=== PATIENT | female | born 1960 | race Caucasian/White ===

== ENCOUNTER → 2020-04-01 | Outpatient (CLI) | payer BC ==
--- NOTE | 2020-04-01 17:42 | Diagnostic Imaging Report ---
INDICATION: Pelvic pain and back pain. TIME OF EXAM: 2:42 p.m. EXAMINATION: Frontal view of the pelvis and multiple views of bilateral hips were obtained. FINDINGS: Femoral acetabular alignment is normal, bilaterally. There are significant osteoarthritic changes of bilateral hips. Significant superior joint space narrowing is noted, bilaterally. Femoral heads and necks are intact and no fracture is seen. Rami appear to be intact. SI joints and symphysis are not widened. IMPRESSION: Bilateral hip joint degenerative changes. No acute bony abnormality is detected. Dictated by: Dictated on workstation # [id number]
--- NOTE | 2020-04-01 17:42 | Diagnostic Imaging Report ---
INDICATION: Low back pain. TIME OF EXAM: 02:38 p.m. EXAMINATION: Frontal and lateral views of lumbar spine were obtained. FINDINGS: Curvature of lumbar spine is normal. There is minimal anterolisthesis of L4 on L5. Vertebral body heights are maintained. No acute compression fracture is seen. There is generalized degenerative disc disease with variable disc space narrowing and marginal spurring. There is multilevel facet arthropathy noted. IMPRESSION: Lumbar spondylosis and facet arthropathy with minimal L4-L5 spondylolisthesis. No acute bony abnormality is detected. Dictated by: Dictated on workstation # [id number]
--- NOTE | 2020-04-01 17:43 | Diagnostic Imaging Report ---
INDICATION: Back pain. TIME OF EXAM: 02:37 p.m. FINDINGS: Frontal and lateral views of the thoracic spine were obtained. There is normal thoracic kyphotic curvature. The vertebral body heights appear to be well maintained. No acute compression fracture is detected. There is generalized degenerative disc disease with variable disc space narrowing and marginal osteophyte formation. Paraspinous line is intact. There are postop changes in the lower cervical spine. IMPRESSION: Thoracic spondylosis. No acute bony abnormality is detected. Dictated by: Dictated on workstation # [id number]
== END ==
LOC: RAD 14:01
PROVIDERS: ATTEND Family Medicine
DX: M47.816 Spondylosis without myelopathy or radiculopathy, lumbar region (principal); M43.16 Spondylolisthesis, lumbar region; M16.0 Bilateral primary osteoarthritis of hip; M47.814 Spondylosis without myelopathy or radiculopathy, thoracic region; M48.00 Spinal stenosis, site unspecified
CPT/HCPCS: 72072; 72100; 73523

== ENCOUNTER → 2022-07-30 | Outpatient (CLI) | payer BC ==
--- NOTE | 2022-07-30 17:02 | Diagnostic Imaging Report ---
EXAMINATION: Bilateral breast ultrasound. INDICATION: Right breast lump. FINDINGS: The diagnostic mammogram performed prior to this study noted multiple rounded asymmetries of varying sizes in both breasts. In the area of the patient's palpable abnormality in the 1 o'clock position of the right breast approximately 3 to 4 cm from the nipple, there is a 5.1 x 3.6 x 4.3 cm solid mass with a small amount of internal vascularity. This finding is worrisome for malignancy and I would recommend that an ultrasound-guided biopsy be performed. There are also numerous cysts in both breasts. These cysts have a generally benign appearance. The largest cyst on the right is in the 8 o'clock position roughly 3 to 4 cm from the nipple and measures 3.2 x 1.7 x 2.6 cm. On the left, the largest cyst is in the 6 o'clock position and measures 2.7 x 2.0 x 3.6 cm. There is no other solid mass to suggest malignancy. There is a small amount of shadowing in the midportion of the left breast. Most likely, this corresponds to the suspected scar formation seen on the mammogram. IMPRESSION: 1. There is a solid 5 cm mass in the area of the patient's palpable abnormality in the right breast. This is suspicious for malignancy. An ultrasound-guided biopsy would be recommended for further study. 2. There are multiple benign-appearing cysts of varying sizes in both breasts. 3. These results were called to Dr. Ernst Frausto. ACR BI-RADS Category 4: Suspicious abnormality. Result letter will be mailed to the patient. Note: At least 10% of breast cancer is not imaged by mammography. Dictated by: Dictated on workstation # [id number]
--- NOTE | 2022-07-30 19:48 | Diagnostic Imaging Report ---
3-D bilateral diagnostic mammogram with CAD. INDICATION: Right breast lump COMPARISON: There are no previous exams available for comparison. By history, the patient has a palpable abnormality in the 1 o'clock position of the right breast. In this area, there is a 4 cm rounded mass. The tomographic images suggest that this asymmetry has a fairly smooth border although it is not visualized in its entirety. There are multiple other rounded asymmetries in both breasts and these findings could be secondary to cyst formation. The possibility of a solid mass however cannot be entirely excluded. I would recommend that ultrasound of the right breast be performed for further study. There is an area of architectural distortion in the midportion of the left breast. By history, the patient has had a prior biopsy in this area and I suspect that the architectural distortion is related to scar formation. IMPRESSION: Ultrasound would be recommended for further evaluation of the 4 cm rounded mass in the 1 o'clock position of the right breast. ACR BI-RADS Category 0: Incomplete. (Needs additional imaging evaluation). Result letter will be mailed to the patient. Note: At least 10% of breast cancer is not imaged by mammography. Dictated by: Dictated on workstation # [id number]
== END ==
LOC: RAD 12:45
PROVIDERS: ATTEND Surgery
DX: N63.13 Unspecified lump in the right breast, lower outer quadrant (principal); N60.11 Diffuse cystic mastopathy of right breast; N60.12 Diffuse cystic mastopathy of left breast
CPT/HCPCS: 76641; 77066; G0279; 77062

== ENCOUNTER → 2022-08-09 | Outpatient (CLI) | payer BC ==
[~2022-08-09] VITALS: Ht 165.1 cm; Wt 90.9 kg
[~2022-08-09] MED LIST: LIDOCAINE 1% INJ 30 ML (XYLOCAINE) VIAL INJ ONE; LIDOCAINE 1% INJ 30 ML (XYLOCAINE) VIAL ONE
--- NOTE | 2022-08-09 13:01 | Diagnostic Imaging Report ---
INDICATION: Right breast mass. PROCEDURE: The patient presents for ultrasound-guided core biopsy. The patient was brought to the sonographic suite and placed on the table in the supine position. Ultrasound imaging of the right breast was performed to evaluate appropriate entry site. The right breast was then prepped and draped in the usual sterile fashion. A small amount of 1% lidocaine was utilized for local anesthesia. A total of 4 core biopsies were obtained of the large mass at the 1:00 location of the right breast, 3-4 cm from the nipple utilizing the 14-gauge Achieve needle. A marker clip was then deployed. Hemostasis was obtained using manual compression. The patient tolerated the procedure well and was sent for a post procedure mammogram in satisfactory condition. IMPRESSION: Successful ultrasound-guided core biopsy of the right breast mass at the 1:00 location. Pathology results are currently pending. Dictated by: Dictated on workstation # [id number]
--- NOTE | 2022-08-09 18:38 | Diagnostic Imaging Report ---
INDICATION: Right breast mass. Patient is status post ultrasound-guided biopsy. EXAMINATION: Unilateral right 2D CC and ML mammography was performed after patient underwent ultrasound-guided core biopsy. FINDINGS: There is a marker clip noted within the dominant solid mass in the upper slightly inner right breast, status post ultrasound-guided biopsy. IMPRESSION: Marker clip placement, as described. Dictated by: Dictated on workstation # [id number]
== END ==
LOC: RAD 10:42
PROVIDERS: ATTEND Surgery
DX: N63.12 Unspecified lump in the right breast, upper inner quadrant (principal)
CPT/HCPCS: 19083; 77065; G0279

== ENCOUNTER 2022-08-22 06:04 | Outpatient (CLI) | payer BC ==
[~2022-08-22] VITALS: Ht 165.1 cm; Wt 90.9 kg
[2022-08-22] MEDS ORDERED: GABA-486 PO (15:44)
[2022-08-22] MEDS ORDERED: CARV12.53 PO (15:44)
[2022-08-22] MEDS ORDERED: MELO15TA39 PO (15:44)
[2022-08-22] MEDS ORDERED: SIMV20TA26 PO (15:44)
[2022-08-22] MEDS ORDERED: FLUO20CA42 PO (15:44)
[2022-08-22] MEDS ORDERED: DICL100G13 TP (15:44)
== END 2022-08-22 15:48 | disposition home or self-care (01) ==
LOC: PREOP 06:04
PROVIDERS: ATTEND Surgery
DX: Z01.818 Encounter for other preprocedural examination (principal)

== ENCOUNTER 2022-08-29 05:58 | Day surgery (SDC) | payer BC ==
[~2022-08-29] VITALS: Ht 165 cm; Wt 90.9 kg
[2022-08-29] VITALS (12 sets, daily range): BP systolic 125–156; BP diastolic 72–84
[~2022-08-29 05:58] MED LIST changes: +CARV12.53 PO; +DICL100G13 TP; +FLUO20CA42 PO; +GABA-486 PO; -LIDOCAINE 1% INJ 30 ML (XYLOCAINE) VIAL INJ ONE; -LIDOCAINE 1% INJ 30 ML (XYLOCAINE) VIAL ONE; +MELO15TA39 PO; +SIMV20TA26 PO
[2022-08-29] MEDS ORDERED: LACTATED RINGERS 1,000 ML IV PRN (06:15)
[2022-08-29] MEDS ORDERED: ceFAZolin INJECTION 2,000 MG in NS (IVPB) 50 ML IV ONE (06:15)
[2022-08-29] MEDS ORDERED: BUP/EPI 0.25% 1:200,000 (MARCAINE) 30 ML VIAL ONE (07:09)
[2022-08-29] MEDS ORDERED: SEVOFLURANE (ULTANE) 15 ML INHAL SOLN ONE ×2 (07:13→08:48)
[2022-08-29] MEDS ORDERED: LIDOCAINE PF 2% 5 ML (XYLOCAINE) VIAL ONE (07:13)
[2022-08-29] MEDS ORDERED: ONDANSETRON 4 MG/2 ML (SDV) Z0FRAN ONE (07:13)
[2022-08-29] MEDS ORDERED: fentaNYL INJ 100 MCG/2 ML AMP ONE ×2 (07:13→09:38)
[2022-08-29] MEDS ORDERED: MIDAZOLAM 2 MG/2 ML (VERSED) VIAL ONE (07:13)
[2022-08-29] MEDS ORDERED: proPOfol 200 MG/20 ML (DIPRIVAN) VIAL IV ONE (07:13)
[2022-08-29] MEDS ORDERED: METHYLENE BLUE 0.5% (PROVAYBLUE) 50 mg/10 ml vial IV ONE ×2 (08:19→08:50)
--- NOTE | 2022-08-29 08:25 | Progress Note-Pre Operative ---
Pre-Operative Progress Note Date of Available H&P: Aug 15, 2022 Date H&P Reviewed: Aug 29, 2022 Time H&P Reviewed: 08:23 History & Physical: H&P Reviewed, Patient Examed, No changes noted Pre-Operative Diagnosis: right breast cancer JOSEPH ENAMORADO DO Aug 29, 2022 08:25
[2022-08-29] MEDS ORDERED: BUP/EPI 0.25% 1:200,000 (MARCAINE) 30 ML VIAL IJ ONE (09:21)
[2022-08-29] MEDS ORDERED: ACHD5005 PO (09:30)
[2022-08-29] MEDS ORDERED: DOCU-143 PO (09:30)
--- NOTE | 2022-08-29 09:32 | Discharge Inst-Simple/Standard ---
Discharge Inst-Standard Discharge Medications New, Converted or Re-Newed RX: Transmitted to Pharmacy Patient Instructions/Follow Up Plan of Care/Instructions/FU: 2 weeks Elmer Activity as Tolerated: No Discharge Diet: Regular Diet Other Inst to Patient Follow up Appt: Make appointment for 2 week. Instructions: No lifting greater than 10 pounds. No strenuous activity. May shower in 24 hours, no tub bath or soaking. Use incentive spirometer at home as directed. No Smoking Skin/Wound Care: You have special glue over your incision that will fall off on it's own. Symptoms to Report: Appetite Changes, Extremity Discoloration, Numbness/Tingling, Swelling Increased, Bleeding Excessive, Eyesight Changes, Pain Increased, Urine Color Change, Constipation(Persistent), Fever over 101 degree F, Pain/Pressure in chest, Urinating Difficulty, Cough Up/Vomit Blood, Heart Beat Irreg/Pounding, Pain/Pressure in jaw, Vaginal Bleeding Increase, Cramps in feet or legs, Lightheadedness, Pain/Pressure in shoulder, Diarrhea(Persistent), Memory Changes Suddenly, Questions/Concerns, Weight gain consecutive days, Dizziness/Fainting, Nausea/Vomiting, Shortness of Breath, Weight gain over 2 pounds If questions or concerns contact your physician Or seek help at emergency department. JOSEPH ENAMORADO DO Aug 29, 2022 09:32
--- NOTE | 2022-08-29 09:32 | Anesthesia-General Post-Op ---
General Patient Condition Mental Status/LOC: Same as Preop Cardiovascular: Satisfactory Nausea/Vomiting: Absent Respiratory: Satisfactory Pain: Controlled Complications: Absent Post Op Complications Complications None Follow Up Care/Instructions Patient Instructions None needed. Anesthesia/Patient Condition Patient Condition Patient is doing well, no complaints, stable vital signs, no apparent adverse anesthesia problems. No complications reported per nursing. IRIS DE LA O CRNA Aug 29, 2022 09:32
[2022-08-29] MEDS ORDERED: MEPERIDINE (DEMEROL) INJ 50 MG/ML IVP ONE (09:45)
[2022-08-29] MEDS ORDERED: fentaNYL INJ 100 MCG/2 ML AMP IVP ONE (09:45)
[2022-08-29] MEDS ORDERED: ONDANSETRON 4 MG/2 ML (SDV) Z0FRAN IVP PRN (09:45)
--- NOTE | 2022-08-29 09:55 | Diagnostic Imaging Report ---
INDICATION: Right breast cancer. Total of 1.1 mCi technetium 99m Lymphoseek was injected in 4 separate aliquots in a periareolar distribution of the right breast. Imaging was then performed. There is migration of activity to the right axilla. The sentinel node was marked on the patient's skin. IMPRESSION: Right breast lymphoscintigraphy, as described. Dictated by: Dictated on workstation # [id number]
--- NOTE | 2022-08-30 03:33 | OPERATIVE REPORT ---
DATE OF SERVICE: 08/29/2022 PREOPERATIVE DIAGNOSIS: Right breast cancer. POSTOPERATIVE DIAGNOSIS: Right breast cancer. PROCEDURE: Right breast sentinel node biopsy. SURGEON: Joseph Payne DO TYPE OF ANESTHESIA: General. ESTIMATED BLOOD LOSS: Minimal. COMPLICATIONS: None. INDICATIONS: The patient is a 62-year-old female with a right breast mass, which proven to be right breast cancer. The patient needing sentinel node biopsy prior to any treatment for pantera status. The patient understands risks and benefits of procedure and wishes to proceed. Consent was signed in chart. DESCRIPTION OF PROCEDURE: The patient was taken to the operating suite. She was prepped and draped in sterile fashion. Timeout was performed. A 4 mL of methylene blue was injected, 1 mL in each of 4 locations and near the tumor that is palpable. The breast was massaged for 10 minutes. Then, local anesthetic was infiltrated in the right axilla. A [employer] counter was used to isolate the largest collection of the tracer. Hemostat was used to dissect down through subcutaneous tissues, which then encountered a node that had a methylene blue color to it and in-vivo count of 31,673. This was able to be grasped with Marilin, gently elevated and cautery used to dissect out achieving hemostasis. Ex-vivo count was 33,900. The axilla was then irrigated with copious amounts of water and hemostasis had been achieved. No other palpable nodes present and no nodes found with the counter; therefore, the subcutaneous tissues were then reapproximated using a 3-0 Vicryl and the skin was then closed with Skin Affix. The patient tolerated the procedure well without any complications. She was taken to recovery room in stable condition. Job ID: [id number] DocumentID: [id number] Dictated Date: 08/29/2022 23:38:56 Index Editor Date: 08/30/2022 03:30:00 Dictated By: JOSEPH PAYNE DO
== END 2022-08-29 11:30 | disposition home or self-care (01) ==
LOC: CARD 05:58
PROVIDERS: ATTEND Surgery
DX: C50.911 Malignant neoplasm of unspecified site of right female breast (principal)
CPT/HCPCS: 38500; 38900; 78195; 87081; A9520

== ENCOUNTER 2022-11-06 15:07 | Outpatient (RCR) | payer BC ==
[~2022-11-06 15:07] MED LIST changes: +ACHD5005 PO; +DOCU-143 PO
== END 2022-11-20 | disposition home or self-care (01) ==
LOC: ONC 15:07
PROVIDERS: ATTEND Internal Medicine Hematology & Oncology
DX: Z53.9 Procedure and treatment not carried out, unspecified reason (principal)

== ENCOUNTER 2022-12-04 12:09 | Outpatient (CLI) | payer BC ==
[~2022-12-04] VITALS: Ht 165.1 cm; Wt 90.9 kg
[2022-12-04] MEDS ORDERED: CARV25TA PO (14:18)
[2022-12-04] MEDS ORDERED: CARV12.53 PO (14:18)
== END 2022-12-11 08:55 | disposition home or self-care (01) ==
LOC: PREOP 12:09
PROVIDERS: ATTEND Surgery
DX: Z01.818 Encounter for other preprocedural examination (principal)

== ENCOUNTER 2022-12-12 07:08 | Inpatient (IN) | payer BC ==
[~2022-12-12] VITALS: Ht 165 cm; Wt 88.0 kg
[2022-12-12] VITALS (12 sets, daily range): BP systolic 92–147; BP diastolic 52–81
[~2022-12-12 07:08] MED LIST changes: +CARV25TA PO
[2022-12-12] MEDS ORDERED: ceFAZolin INJECTION 2,000 MG in NS (IVPB) 50 ML IV ONE (07:15)
[2022-12-12] MEDS ORDERED: LACTATED RINGERS 1,000 ML IV PRN (07:15)
[2022-12-12] MEDS ORDERED: BUP/EPI 0.5% 1:200,000 (SENSORCAINE) 30 ML VIAL ONE (07:23)
--- NOTE | 2022-12-12 07:27 | Progress Note-Pre Operative ---
Pre-Operative Progress Note Date H&P Reviewed: Dec 12, 2022 Time H&P Reviewed: 07:26 History & Physical: H&P Reviewed, Patient Examed, No changes noted Pre-Operative Diagnosis: right breast cancer JOSEPH ENAMORADO DO Dec 12, 2022 07:27
[2022-12-12] MEDS ORDERED: ONDANSETRON 4 MG/2 ML (SDV) Z0FRAN ONE ×2 (07:35→10:33)
[2022-12-12] MEDS ORDERED: LIDOCAINE PF 2% 5 ML (XYLOCAINE) VIAL ONE (07:35)
[2022-12-12] MEDS ORDERED: proPOfol 200 MG/20 ML (DIPRIVAN) VIAL IV ONE (07:35)
[2022-12-12] MEDS ORDERED: fentaNYL INJ 100 MCG/2 ML AMP ONE ×2 (07:35→10:32)
[2022-12-12] MEDS ORDERED: SEVOFLURANE (ULTANE) 15 ML INHAL SOLN ONE ×2 (07:35→09:12)
[2022-12-12] MEDS ORDERED: MIDAZOLAM 2 MG/2 ML (VERSED) VIAL ONE (07:36)
[2022-12-12] MEDS ORDERED: ROPIVACAINE 5MG/ML 30ML VIAL ONE (08:12)
[2022-12-12] MEDS ORDERED: fentaNYL INJ 100 MCG/2 ML AMP IVP PRN (09:45)
--- NOTE | 2022-12-12 09:54 | Progress Note-Post Operative ---
Post-Operative Progess Note Surgeon (s)/Vacuum Cleaner Repairer (s) Surgeon JOSEPH ENAMORADO DO Vacuum Cleaner Repairer: na Pre-Operative Diagnosis right breast cancer Post-Operative Diagnosis same Procedure & Operative Findings Date of Procedure 12/12/22 Procedure Performed/Findings right simple mastectomy Anesthesia Type general Estimated Blood Loss Estimated blood loss (mL): minimal Specimens/Packing Specimens Removed right breast JOSEPH ENAMORADO DO Dec 12, 2022 09:54
[2022-12-12] MEDS ORDERED: ONDANSETRON 4 MG/2 ML (SDV) Z0FRAN IVP PRN ×2 (10:00→10:15)
--- NOTE | 2022-12-12 10:05 | Anesthesia-General Post-Op ---
General Patient Condition Mental Status/LOC: Same as Preop Cardiovascular: Satisfactory Nausea/Vomiting: Absent Respiratory: Satisfactory Pain: Controlled Complications: Absent Post Op Complications Complications None Follow Up Care/Instructions Patient Instructions None needed. Anesthesia/Patient Condition Patient Condition Patient is doing well, no complaints, stable vital signs, no apparent adverse anesthesia problems. No complications reported per nursing. KARLOS WHYTE CRNA Dec 12, 2022 10:05
[2022-12-12] MEDS ORDERED: fentaNYL INJ 100 MCG/2 ML AMP IVP ONE (10:15)
[2022-12-12] MEDS ORDERED: PROMETHAZINE INJ 25 MG/ML (PHENERGAN) AMP IVP ONE (10:15)
[2022-12-12] MEDS ORDERED: MEPERIDINE (DEMEROL) INJ 50 MG/ML IVP ONE (10:15)
[2022-12-12] MEDS: HYDROcodone/APAP 5 MG/325 MG (LORTAB) TAB PO PRN ×3 (11:33→21:12)
--- NOTE | 2022-12-12 14:04 | Physical Therapy Evaluation ---
PT Evaluation-General Medical Diagnosis Admission Date Dec 12, 2022 at 07:08 Medical Diagnosis: Right Mastectomy Onset Date: Dec 12, 2022 Therapy Diagnosis Therapy Diagnosis: Gait deficit, strength deficit Precautions Precautions/Isolations: Fall Prevention, Standard Precautions Weight Bear Status Right Lower Extremity: Right Full Weight Bearing Left Lower Extremity: Left Full Weight Bearing Referral Physician: Dr. Payne Reason for Referral: Evaluation/Treatment Medical History Reviewed History: Yes Social History Home: Single Level Current Living Status: Spouse Entry Into Home: Stairs With Railing PT Steps Into Home: 3 Prior Prior Level of Function SCALE: Activities may be completed with or without assistive devices. 5-Exoucbwxww-hptnqgp completes the activity by him/herself with no assistance from a helper. 5-Set-up or Clean-up Assistance-helper sets up or cleans up; patient completes activity. [place] assists only prior to or following the activity. 4-Supervision or Touching Assistance-helper provides verbal cues and/or touching/steadying and/or contact guard assistance as patient completes activity. Assistance may be provided throughout the activity or intermittently. 3-Partial/Moderate Assistance-helper does LESS THAN HALF the effort. [place] lifts, holds or supports trunk or limbs, but provides less than half the effort. 2-Substantial/Maximal Assistance-helper does MORE THAN HALF the effort. [place] lifts or holds trunk or limbs and provides more than half the effort. 6-Refqyblqj-kaugnr does ALL the effort. Patient does none of the effort to complete the activity. Or, the assistance of 2 or more helpers is required for the patient to complete the activity. If activity was not attempted, code reason: 7-Patient Refused. 9-Not Applicable-not attempted and the patient did not perform the activity before the current illness, exacerbation or injury. 10-Not Attempted due to Environmental Limitations-(lack of equipment, weather restraints, etc.). 88-Not Attempted due to Medical Conditions or Safety Concerns. Bed Mobility: 6 Transfers (B,C,W/C): 6 Gait: 6 Stairs: 6 Indoor Mobility (Ambulation): Independent Stairs: Independent Prior Devices Use: Walker Patient has L4-5 fusion in September 2022. Reports since then she has used a FWW at times and uses her LSO, but states "I don't have to anymore, just when I feel like I might need it." Reports severe OA in bilateral hip with surgeries imminent. Reports coupled with the back surgery, her bilateral hip pain causes her to walk with a moderate forward lean at times. PT Evaluation-Current Subjective Patient lying supine in bed upon PT arrival, agreeable to treatment. Patient rates pain at 6/10 in right chest. Objective Patient Orientation: Person, Place, Time, Situation Sensory Vision: Functional Hearing: Functional Sensation Right Lower Extremit: Intact Sensation Left Lower Extremity: Intact Transfers Roll Left to Right (QC): 3 Sit to Lying (QC): 3 Lying to Sitting/Side of Bed(Q: 3 Sit to Stand (QC): 4 Chair/Qnj-bj-Uofok Xfer(QC): 4 Gait Does the Patient Walk?: Yes Mode of Locomotion: Walk Anticipated Mode of Locomotion: Walk Walk 10 feet (QC): 4 Walk 50 ft with 2 Turns(QC): 4 Walk 150 ft (QC): 4 Distance: 150 feet Gait Assistive Device: None Balance Sitting Static: Good Sitting Dynamic: Good Standing Static: Fair Standing Dynamic: Fair Assessment/Needs Patient tolerate treatment fair. She was educated on limited use of the right UE especially for any bed mobility or transfers. Advised against using FWW with RUE at this time. Patient performs all bed mobility with min a and all transfers with CGA. Patient ambulates 150 feet with CGA and verbal cues for posture, safety and conservation of energy. Patient in chair post treatment with all needs met, nursing notified, call light in hand and daughter in the room. Rehab Potential: Good PT Bit Shaver Goals Bit Shaver Goals PT Assisted Goals Time Frame: Dec 21, 2022 Roll Left & Right (QC): 6 Sit to Lying (QC): 6 Lying-Sitting on Side/Bed(QC): 6 Sit to Stand (QC): 6 Chair/Vlw-uo-Bqufb Xfer(QC): 6 Toilet Transfer (QC): 6 Does the Patient Walk: Yes Walk 10 feet (QC): 6 Walk 50ft with 2 Turns (QC): 6 Walk 150 ft (QC): 6 1 Step (curb) (QC): 4 4 Steps (QC): 4 PT Plan Problem List Problem List: Activity Tolerance, Functional Strength, Safety, Balance, Gait, Transfer, Bed Mobility, ROM Treatment/Plan Treatment Plan: Continue Plan of Care Treatment Plan: Bed Mobility, Education, Functional Activity Ora, Functional Strength, Group Therapy, Gait, Safety, Therapeutic Exercise, Transfers Treatment Duration: Dec 21, 2022 Frequency: 6 times per week Estimated Hrs Per Day: .25 hour per day Patient and/or Family Agrees t: Yes Safety Risks/Education Patient Education: Gait Training, Transfer Techniques Teaching Recipient: Patient Teaching Methods: Demonstration, Discussion Response to Teaching: Verbalize Understanding, Return Demonstration Time Time In: 1323 Time Out: 1348 DATE: Dec 12, 2022 Total Billed Treatment Time: 25 Total Billed Treatment Visit, Dillan CRESPO JOHN A PT Dec 12, 2022 14:04
[2022-12-12] MEDS ORDERED: AtorvaSTATin TABLET 10 MG TABLET PO SCH (21:00)
[2022-12-12] MEDS ORDERED: GABAPENTIN 100 MG (NEURONTIN) CAP ONE (21:49)
[2022-12-12] MEDS: GABAPENTIN 100 MG (NEURONTIN) CAP PO SCH (21:51)
--- NOTE | 2022-12-13 03:50 | OPERATIVE REPORT ---
DATE OF SERVICE: 12/12/2022 PREOPERATIVE DIAGNOSIS: Right breast cancer. POSTOPERATIVE DIAGNOSIS: Right breast cancer. PROCEDURE PERFORMED: Right simple mastectomy. SURGEON: Joseph Payne DO. ANESTHESIA: General. ESTIMATED BLOOD LOSS: 125 mL. COMPLICATIONS: None. INDICATIONS: The patient is a 62-year-old female who was found to have right breast cancer. She previously had sentinel node biopsy, which was negative. The patient delayed her surgical intervention for spine surgery. She followed back up with me to discuss surgical options and also had referral to oncology, which she saw. The patient is going to proceed with right simple mastectomy. At this time, she does not want any further options or treatment, just want to proceed with mastectomy. All risks and benefits were discussed with her and her family and she understands and agreed to only right simple mastectomy. DESCRIPTION OF PROCEDURE: The patient was taken to the operating suite. She was prepped and draped in sterile fashion. Timeout was performed. Elliptical incision was made in the right breast from the medial aspect laterally to the mid axillary line. Skin flaps were created both superiorly and inferiorly to anatomical landmarks and also medially to the sternal edge. Once skin flaps were made, the pectoralis major was then scored and elevated and the pectoral fascia was removed medially to laterally until lateral borders of mastectomy were encountered and the right breast was then excised. The breast was tagged with short suture superiorly and long suture laterally. The wound was then irrigated with copious amounts of sterile water. Hemostasis was achieved. [ ] Tommie drains were placed within the wound, brought out through stab incisions in the right lateral lower breast flap. The subcutaneous tissues were then reapproximated using 3-0 Vicryl. The skin was then closed using 4-0 Monocryl in a running subcuticular fashion. The area was washed and dried and skin Affix was placed over the incisions. The patient tolerated the procedure well without complications. She was taken to recovery room in stable condition. Job ID: [id number] DocumentID: [id number] Dictated Date: 12/12/2022 22:33:39 [employer]ocate Date: 12/13/2022 03:48:00 Dictated By: JOSEPH PAYNE DO
[2022-12-13 04:58] VITALS: BP 133/67
[2022-12-13] MEDS: HYDROcodone/APAP 5 MG/325 MG (LORTAB) TAB PO PRN ×2 (04:58→13:16)
--- NOTE | 2022-12-13 07:05 | Progress Note - Surgery ---
YOAN CESAR 12/13/22 0705: Subjective Date Seen by a Provider: Dec 13, 2022 Time Seen by a Provider: 06:58 Subjective/Events-last exam Veena Vigil was seen at bedside this morning resting comfortably. POD 1 R mastectomy. Reports 4/10 pain at surgical site well controlled with lortab. Denies any other pain. Drains in place and draining serosanguinous fluid. Approximately 200cc out since surgery via 2 KRISTOPHER drains. No swelling or bruising present at surgical site. Normal strength and ROM in right UE. No fever or chills overnight. Desires to advance diet to regular for breakfast. Reports she is ambulating without issue. Review of Systems General: No Chills, No Night Sweats HEENT: No Head Aches, No Visual Changes Pulmonary: No Dyspnea, No Cough Cardiovascular: Chest Pain; No: Palpitations, Edema Gastrointestinal: No: Nausea, Vomiting, Abdominal Pain Genitourinary: No Dysuria, No Hematuria Musculoskeletal: No: arm pain, hand pain Neurological: No: Change in speech, Confusion Objective Exam Vital Signs Date Time Temp Pulse Resp B/P (MAP) Pulse Ox O2 Delivery O2 Flow Rate FiO2 12/13/22 04:58 36.4 73 18 133/67 (89) 95 Room Air 12/12/22 23:53 36.1 71 20 123/62 (82) 95 NIV CPAP 12/12/22 20:59 Room Air 12/12/22 19:35 36.9 86 18 125/59 (81) 94 Room Air 12/12/22 16:06 37.2 76 18 130/64 (86) 94 Room Air 12/12/22 16:04 Room Air 12/12/22 11:30 96 Room Air 2.00 12/12/22 11:00 35.6 59 18 147/81 (103) 96 Room Air 12/12/22 10:55 Room Air 12/12/22 10:50 36.7 14 132/70 (90) 97 Room Air 12/12/22 10:40 OxyMask 2.00 12/12/22 10:40 12 134/66 (88) 95 OxyMask 2.00 12/12/22 10:30 12 123/62 (82) 100 OxyMask 4.00 12/12/22 10:25 OxyMask 6.00 12/12/22 10:20 14 105/52 (69) 100 OxyMask 6.00 12/12/22 10:10 OxyMask 6.00 12/12/22 10:10 14 92/60 (71) 99 OxyMask 6.00 12/12/22 10:00 16 93/55 (68) 98 OxyMask 10 12/12/22 09:56 36.1 16 94/54 (67) 94 OxyMask 10 12/12/22 09:56 OxyMask 10 12/12/22 07:25 96 Room Air 12/12/22 07:25 36.2 78 18 135/81 (99) 96 Room Air I & O 12/13/22 07:00 Intake Total 550 ml Output Total 300 ml Balance 250 ml Capillary Refill : General Appearance: No Apparent Distress, WD/WN HEENT: PERRL/EOMI, Moist Mucous Membranes Neck: Non Tender, Supple Respiratory: Lungs Clear, No Accessory Muscle Use Cardiovascular: Regular Rate, Rhythm, Normal Peripheral Pulses Gastrointestinal: non tender, soft Extremity: Normal Capillary Refill, No Pedal Edema, Other (RUE is nontender with no edema) Neurologic/Psychiatric: Alert, Oriented x3, Normal Mood/Affect Skin: Normal Color, Warm/Dry, Other (no obvious blood or purulence noted on outside of bandage. Did not take down. Will examine with Dr Payne later today.) Lymphatic: No Adenopathy Assessment/Plan Assessment/Plan Assessment/Plan POD 1 R mastectomy R sided post surgical chest pain R breast cancer pain controlled with lortab, has not required other pain medication No signs of infection or bleeding to R chest Encouraged IS use and ambulation Advance diet to regular Likely will discharge today with close outpatient follow up JOSEPH PAYNE DO 12/13/22 1621: Subjective Subjective/Events-last exam Pain controlled. Drains serosang. No complaints. Denies n/v fever sweats chills shortness of breath or chest pain. Objective Exam General Appearance: No Apparent Distress, WD/WN HEENT: PERRL/EOMI, Normal ENT Inspection Neck: Non Tender, Supple Respiratory: Chest Non Tender, No Accessory Muscle Use, No Respiratory Distress Cardiovascular: Regular Rate, Rhythm, No JVD Gastrointestinal: non tender, soft Extremity: Non Tender, Other (RUE is nontender with no edema) Neurologic/Psychiatric: Alert, Oriented x3, Normal Mood/Affect Skin: Normal Color, Warm/Dry Lymphatic: No Adenopathy Assessment/Plan Assessment/Plan Assessment/Plan POD 1 R mastectomy R sided post surgical chest pain R breast cancer pain controlled with lortab, has not required other pain medication No signs of infection or bleeding to R chest Encouraged IS use and ambulation Regular diet Likely will discharge today with close outpatient follow up Final Diagnosis s/p right mastectomy R sided post surgical chest pain R breast cancer Supervisory-Addendum Brief Verification & Attestation Participated in pt care: history, MDM, physical Personally performed: exam, history, MDM, supervision of care Care discussed with: Medical Student Procedures: n/a Results interpretation: Verified all documentation Verification and Attestation of Medical Student E/M Service A medical student performed and documented this service in my presence. I reviewed and verified all information documented by the medical student and made modifications to such information, when appropriate. I personally performed the physical exam and medical decision making. Joseph Payne Dec 13, 2022,16:21 YOAN CESAR Dec 13, 2022 07:05 JOSEPH PAYNE DO Dec 13, 2022 16:21
[2022-12-13 07:28] VITALS: BP 121/68
[2022-12-13] MEDS: GABAPENTIN 100 MG (NEURONTIN) CAP PO SCH (08:55)
--- NOTE | 2022-12-13 09:47 | Physical Therapy Progress Note ---
Therapy Progress Note Patient observed by this PT ambulating in hallway independently without AD with family. PT discussed with patient and family on importance of continuing to ambulate PRN to improve strength and to prevent possible negative side effects. Both voice understanding. PT to dismiss patient from services at this time. SERA YBARRA PT Dec 13, 2022 09:47
[2022-12-13 11:28] VITALS: BP 130/75
[2022-12-13] MEDS ORDERED: ACHD5005 PO (16:10)
[2022-12-13] MEDS ORDERED: DOCU-143 PO (16:10)
--- NOTE | 2022-12-13 16:12 | Discharge Inst-Simple/Standard ---
Discharge Inst-Standard Discharge Medications New, Converted or Re-Newed RX: Transmitted to Pharmacy Patient Instructions/Follow Up Plan of Care/Instructions/FU: 2 weeks Elmer When drain is less than 30 mL per 24 hours, notify office to have it removed. Only one drain to be removed per day if less than 30mL. Activity as Tolerated: No Discharge Diet: Regular Diet Other Inst to Patient Follow up Appt: Make appointment for 2 week. When drain is less than 30 mL per 24 hours, notify office to have it removed. Only one drain to be removed per day if less than 30mL. Instructions: No lifting greater than 10 pounds. No strenuous activity. May shower in 24 hours, no tub bath or soaking. Use incentive spirometer at home as directed. No Smoking Skin/Wound Care: You have special glue over your incision that will fall off on it's own. Change dressing daily and as needed. Symptoms to Report: Appetite Changes, Extremity Discoloration, Numbness/Tingling, Swelling Increased, Bleeding Excessive, Eyesight Changes, Pain Increased, Urine Color Change, Constipation(Persistent), Fever over 101 degree F, Pain/Pressure in chest, Urinating Difficulty, Cough Up/Vomit Blood, Heart Beat Irreg/Pounding, Pain/Pressure in jaw, Vaginal Bleeding Increase, Cramps in feet or legs, Lightheadedness, Pain/Pressure in shoulder, Diarrhea(Persistent), Memory Changes Suddenly, Questions/Concerns, Weight gain consecutive days, Dizziness/Fainting, Nausea/Vomiting, Shortness of Breath, Weight gain over 2 pounds If questions or concerns contact your physician Or seek help at emergency department. JOSEPH ENAMORADO DO Dec 13, 2022 16:12
[2022-12-13 16:28] VITALS: BP 129/66
[2022-12-13 17:55] VITALS: BP 129/66
== END 2022-12-13 18:02 | disposition home or self-care (01) | DRG 583 ==
LOC: 4TH 07:08 → SURG 07:09 → 4TH 11:09
PROVIDERS: ADMIT Surgery; ATTEND Surgery
PROC: 0KX Muscles, Transfer (ICD-10-PCS; 2022-12-12)
PROC: 5A09357 Assistance with Respiratory Ventilation, Less than 24 Consecutive Hours, Continuous Positive Airway Pressure (ICD-10-PCS; 2022-12-12)
PROC: 0HTT0ZZ Resection of Right Breast, Open Approach (ICD-10-PCS; principal; 2022-12-12 07:47)
DX: C50.911 Malignant neoplasm of unspecified site of right female breast (principal)
CPT/HCPCS: 87081; 94664

== ENCOUNTER 2023-01-09 13:54 | Outpatient (RCR) | payer BC | END 2023-01-20 | disposition home or self-care (01) | LOC: ONC 13:54 | PROVIDERS: ATTEND Internal Medicine Hematology & Oncology | DX: Z53.9 Procedure and treatment not carried out, unspecified reason (principal) ==

== ENCOUNTER → 2023-07-25 | Outpatient (CLI) | payer BC ==
[~2023-07-25] VITALS: Ht 165.1 cm; Wt 90.3 kg
[~2023-07-25] MED LIST changes: -DICL100G13 TP; +DICL100G60 TP; +EXEM25TA4 PO; +PANT40GR PO
== END | disposition home or self-care (01) ==
LOC: PREOP 06:07
PROVIDERS: ATTEND Surgery
DX: Z01.818 Encounter for other preprocedural examination (principal)

== ENCOUNTER 2023-07-31 06:51 | Day surgery (SDC) | payer BC ==
[~2023-07-31] VITALS: Ht 165.1 cm; Wt 90.3 kg
[2023-07-31] VITALS (8 sets, daily range): BP systolic 109–179; BP diastolic 69–98
[2023-07-31] MEDS ORDERED: MIDAZOLAM INJ 2 MG/2 ML VIAL ONE (07:17)
[2023-07-31] MEDS ORDERED: LIDOCAINE 2% w/EPI 1:100,000 20 ML VIAL ONE (07:21)
[2023-07-31] MEDS ORDERED: LACTATED RINGERS 1,000 ML 1,000 ML IV PRN (07:30)
[2023-07-31] MEDS ORDERED: ceFAZolin INJECTION 2,000 MG in NS (IVPB) 50 ML 50 ML IV ONE (07:30)
--- NOTE | 2023-07-31 07:40 | Progress Note-Pre Operative ---
Pre-Operative Progress Note Date H&P Reviewed: Jul 31, 2023 Time H&P Reviewed: 07:33 History & Physical: H&P Reviewed, Patient Examed, No changes noted Pre-Operative Diagnosis: hx breast cancer JOSEPH ENAMORADO DO Jul 31, 2023 07:40
[2023-07-31] MEDS ORDERED: CETI10TA49 PO (08:00)
--- NOTE | 2023-07-31 08:34 | Anesthesia-General Post-Op ---
MAC Patient Condition Mental Status/LOC: Same as Preop Cardiovascular: Satisfactory Nausea/Vomiting: Absent Respiratory: Satisfactory Pain: Controlled Complications: Absent Post Op Complications Complications None Follow Up Care/Instructions Patient Instructions None needed. Anesthesiology Discharge Order Discharge Order Patient is doing well, no complaints, stable vital signs, no apparent adverse anesthesia problems. No complications reported per nursing. IRIS DE LA O CRNA Jul 31, 2023 08:34
--- NOTE | 2023-07-31 08:36 | Progress Note-Post Operative ---
Post-Operative Progess Note Surgeon (s)/Cat Tender (s) Surgeon JOSEPH ENAMORADO DO Cat Tender: NA Pre-Operative Diagnosis hx breast cancer Post-Operative Diagnosis SAME Procedure & Operative Findings Date of Procedure 07/31/23 Procedure Performed/Findings PROCEDURE: Removal of port, COMPLICATIONS: None. INDICATIONS: The patient is a 63 year-old female who had a port previously placed. Patient is ok to have port removed. The patient was explained risk and benefits of the procedure and wished to proceed with procedure. Consent was signed on the chart. PROCEDURE: The patient was taken to the operating suite and was prepped and draped in sterile fashion. A surgical pause was performed. Local anesthetic was infiltrated to the area around the port. A number 15 blade scalpel was used to make an incision. Cautery was used to dissect down to the port which was then grasped and then dissected around. The catheter was removed in its entirety. The port was then able to be dissected out of the pocket and elevated. The wound was then irrigated with copious amounts of irrigation. Hemostasis had been achieved. The subcutaneous tissues were then reapproximated using 3-0 Vicryl. Skin was then closed using Skin Affix placed over the incision. The patient tolerated the procedure well without complication and was taken to recovery room in stable condition. Anesthesia Type mac c local Estimated Blood Loss Estimated blood loss (mL): minimal Specimens/Packing Specimens Removed JOSEPH Michelle DO Jul 31, 2023 08:36
--- NOTE | 2023-07-31 08:39 | Discharge Inst-Simple/Standard ---
Discharge Inst-Standard Patient Instructions/Follow Up Plan of Care/Instructions/FU: 2 weeks Elmer Activity as Tolerated: No Discharge Diet: Regular Diet Other Inst to Patient Follow up Appt: Make appointment for 2 week. Instructions: No lifting greater than 10 pounds. No strenuous activity. May shower in 24 hours, no tub bath or soaking. Use incentive spirometer at home as directed. No Smoking Skin/Wound Care: You have special glue over your incision that will fall off on it's own. Symptoms to Report: Appetite Changes, Extremity Discoloration, Numbness/Tingling, Swelling Increased, Bleeding Excessive, Eyesight Changes, Pain Increased, Urine Color Change, Constipation(Persistent), Fever over 101 degree F, Pain/Pressure in chest, Urinating Difficulty, Cough Up/Vomit Blood, Heart Beat Irreg/Pounding, Pain/Pressure in jaw, Vaginal Bleeding Increase, Cramps in feet or legs, Lightheadedness, Pain/Pressure in shoulder, Diarrhea(Persistent), Memory Changes Suddenly, Questions/Concerns, Weight gain consecutive days, Dizziness/Fainting, Nausea/Vomiting, Shortness of Breath, Weight gain over 2 pounds If questions or concerns contact your physician Or seek help at emergency department. JOSEPH ENAMORADO DO Jul 31, 2023 08:39
[2023-07-31] MEDS ORDERED: MEPERIDINE INJ 50 MG/ML VIAL IVP ONE (08:45)
[2023-07-31] MEDS ORDERED: fentaNYL INJECTION 100 MCG/2 ML VIAL IVP ONE (08:45)
[2023-07-31] MEDS ORDERED: ONDANSETRON INJECTION 4 MG/2 ML (SDV) IVP PRN (08:45)
== END 2023-07-31 10:00 | disposition home or self-care (01) ==
LOC: SDC 06:51
PROVIDERS: ATTEND Surgery
DX: Z45.2 Encounter for adjustment and management of vascular access device (principal); Z85.3 Personal history of malignant neoplasm of breast
CPT/HCPCS: 87081